=== PATIENT | male | born 1955 | race Caucasian/White ===

== ENCOUNTER 2017-01-18 10:22 | Day surgery (SDC) | payer BC ==
--- NOTE | ~2017-01-18 | EGD ---
EGD REPORT [facility] [address] [id number] NAME: IMMANUEL ALVAREGNA III : 57 STATUS : REG [facility]#: [id number] AGE: 61 ADM/REG DATE : 01/18/17 MR#: [id number] REPORT SERV DATE: 01/18/17 DICTATED BY: ASHER ZARATE DATE: 01/18/17 REPORT STATUS : Draft [facility]: [facility] DATE: 01/18/17 [facility] Patient Name: Immanuel Alvarenga Date of : 1955 Attending MD: RYLAN ZARATE MD Procedure Date No Time: 01/18/2017 Procedure: Colonoscopy Indications: High risk colon cancer surveillance: Personal history of colonic polyps Referring MD: AMADO JAEGER Medicines: See the Anesthesia note for documentation of the administered medications Complications: No immediate complications. Estimated blood loss: None. Procedure: Pre-Anesthesia Assessment: - ASA Grade Assessment: III - A patient with severe systemic disease. - Prior to the procedure, a History and Physical was performed, and patient medications and allergies were reviewed. The patient's tolerance of previous anesthesia was also reviewed. The risks and benefits of the procedure and the sedation options and risks were discussed with the patient. All questions were answered, and informed consent was obtained. Prior Anticoagulants: The patient has taken previous NSAID medication, last dose was 1 day prior to procedure. After reviewing the risks and benefits, the patient was deemed in satisfactory condition to undergo the procedure. After I obtained informed consent, the scope was passed under direct vision. Throughout the procedure, the patient's blood pressure, pulse, and oxygen saturations were monitored continuously. The PCF [id number] was introduced through the anus and advanced to the cecum, identified by appendiceal orifice and ileocecal valve. The ileocecal valve, appendiceal orifice and rectum were photographed. The entire colon was examined. The colonoscopy was performed without difficulty. The patient tolerated the procedure well. The quality of the bowel preparation was adequate. Findings: The perianal and digital rectal examinations were normal. Two sessile polyps were found in the rectum. The polyps were 2 to 8 mm in size. These polyps were removed with a cold snare. Resection and retrieval were complete. Multiple small and large-mouthed diverticula were found in the entire EGD REPORT [address] [place]. [address] NAME: IMMANUEL ALVARENGA III : 57 STATUS : REG [facility]#: [id number] AGE: 61 ADM/REG DATE : 01/18/17 MR#: [id number] REPORT SERV DATE: 01/18/17 DICTATED BY: ASHER ZARATE DATE: 01/18/17 REPORT STATUS : Draft [facility]: [facility] DATE: 01/18/17 colon. Non-bleeding internal hemorrhoids were found during retroflexion and were Grade I (internal hemorrhoids that do not prolapse). No other significant abnormalities were identified in a careful examination of the remainder of the colon. Impression: - Two 2 to 8 mm polyps in the rectum. Resected and retrieved. - Diverticulosis in the entire examined colon. - Non-bleeding internal hemorrhoids. Recommendation: - Patient has a contact number available for emergencies. The signs and symptoms of potential delayed complications were discussed with the patient. Return to normal activities tomorrow. Written discharge instructions were provided to the patient. - Discharge patient to home. - High fiber diet indefinitely. - Continue present medications. - Await pathology results. - Repeat colonoscopy in 5 years for surveillance. Procedure Code(s): --- Professional --- 86432, Colonoscopy, flexible, proximal to splenic flexure; with removal of tumor(s), polyp(s), or other lesion(s) by snare technique Diagnosis Code(s): --- Professional --- K62.1, Rectal polyp K64.0, First degree hemorrhoids K57.30, Diverticulosis of large intestine without perforation or abscess without bleeding Z86.010, Personal history of colonic polyps CPT copyright 2013 [employer]. All rights reserved. The codes documented in this report are preliminary and upon paper tube grader review may be revised to meet current compliance requirements. RYLAN ZARATE MD 01/18/2017 11:52 AM This report has been signed electronically. Number of Addenda: 0 Note Initiated On: 01/18/2017 11:26 AM EGD REPORT [facility] [address] [id number] NAME: IMMANUEL ALVARENGA III : [birth year] [place]US : [place] [facility] [place] [id number] AGE: 61 ADM/REG DATE : 01/18/17 MR#: [id number] REPORT SERV DATE: 01/18/17 DICTATED BY: ASHER ZARATE DATE: 01/18/17 REPORT STATUS : Draft TRANSCRIBED BY: [employer] DATE: 01/18/17 Scope Withdrawal Time 0 hours 10 minutes 41 seconds [address] [id number]
[~2017-01-18 10:22] MED LIST: ALEVE220 MG PO; AVAPRO300 MG PO; INDO50 PO; JANUMET1 TA1 PO; LOFIB160 PO
== END 2017-01-18 23:59 | disposition home or self-care (01) ==
LOC: DMU 10:22
PROVIDERS: Internal Medicine Gastroenterology
PROC: 0DBP8ZZ Excision of Rectum, Via Natural or Artificial Opening Endoscopic (ICD-10-PCS; principal; 2017-01-18 12:00)
DX: Z12.11 Encounter for screening for malignant neoplasm of colon (principal); D12.8 Benign neoplasm of rectum; K64.0 First degree hemorrhoids; K57.30 Diverticulosis of large intestine without perforation or abscess without bleeding; I10 Essential (primary) hypertension; E11.9 Type 2 diabetes mellitus without complications; F17.210 Nicotine dependence, cigarettes, uncomplicated; N40.0 Benign prostatic hyperplasia without lower urinary tract symptoms; H91.90 Unspecified hearing loss, unspecified ear; J44.9 Chronic obstructive pulmonary disease, unspecified; E78.00 Pure hypercholesterolemia, unspecified; M19.90 Unspecified osteoarthritis, unspecified site; Z86.010 Personal history of colon polyps; Z98.890 Other specified postprocedural states; Z90.89 Acquired absence of other organs; Z88.5 Allergy status to narcotic agent; Z91.018 Allergy to other foods; Z79.899 Other long term (current) drug therapy
CPT/HCPCS: 82962; 88305